=== PATIENT | male | born 1995 | race Caucasian/White ===

== ENCOUNTER 2019-06-02 22:59 | Emergency (ER) | payer OTHER ==
[~2019-06-02] VITALS: Ht 172.7 cm; Wt 68.7 kg
[2019-06-03] MEDS ORDERED: IBUPROFEN 600MG TABLET PO ONE (00:15)
[2019-06-03] MEDS ORDERED: IPRATROPIUM BROMIDE (0.02%) 0.5MG/2.5ML NEB HHN STA (02:03)
[2019-06-03] MEDS ORDERED: ALBUTEROL (0.083%) 2.5MG/3ML NEB HHN STA (02:03)
[2019-06-03 03:20] VITALS: BP 98/56
== END 2019-06-03 03:59 | disposition home or self-care (01) ==
LOC: ER 22:59
DX: J06.9 Acute upper respiratory infection, unspecified (principal); R07.89 Other chest pain; M54.2 Cervicalgia; R51 Headache
CPT/HCPCS: 70450; 71045; 72040; 99284; Z7610